=== PATIENT | female | born 1990 | race Caucasian/White ===

== ENCOUNTER 2018-09-09 23:35 | Emergency (ER) | payer OTHER ==
[~2018-09-09] VITALS: Ht 162.6 cm; Wt 83.9 kg
[2018-09-09 23:37] VITALS: BP 114/58
--- NOTE | 2018-09-09 23:41 | NUR ---
PT AMBULATORY TO BR THEN TO ER LOBBY W/ STEADY GAIT IN STABLE CONDITION.
--- NOTE | 2018-09-09 23:55 | NUR ---
PT TAKEN TO BED 3
--- NOTE | 2018-09-10 | NUR ---
PT PRESENTS TO ED WITH C/O RUQ/RIGHT FLANK PAIN W/ NAUSEA X 3 DAYS. NO VOMTING. AAO X4, GCS 15, RESPIRATIONS EVEN AND UNLABORED, BL LUNG CLEAR. SKIN WARM/PINK/DRY, +PMSC. ABDOMEN SOFT, NON DISTENDED, ACTIVE BOWEL SOUND X4. VSS, NO ACUTE DISTRESS AT THIS TIME. MADE AWARE OF PT STATUS. WILL CONTINUE TO MONITOR
[2018-09-10] MEDS ORDERED: KETOROLAC 60 MG/2 ML VIAL IM ONE (00:25)
--- NOTE | 2018-09-10 01:22 | NUR ---
PT RETURN FROM XRAY
--- NOTE | 2018-09-10 01:44 | NUR ---
Patient discharged with v/s stable. Written and verbal after care instructions given and explained. Patient alert, oriented and verbalized understanding of instructions. Ambulatory with steady gait. All questions addressed prior to discharge. ID band removed. Patient advised to follow up with PMD. Rx of MOTRIN 800 MG given. Patient educated on indication of medication including possible reaction and side effects. Opportunity to ask questions provided and answered.
[2018-09-10 01:45] VITALS: BP 127/73
== END 2018-09-10 01:44 | disposition home or self-care (01) ==
LOC: MED 23:35
DX: S20.20XA Contusion of thorax, unspecified, initial encounter (principal); X58.XXXA Exposure to other specified factors, initial encounter; Y93.89 Activity, other specified; Y92.89 Other specified places as the place of occurrence of the external cause; Y99.8 Other external cause status
CPT/HCPCS: 71101; 81002; 81025; 96372; 99283; J1885